=== PATIENT | male | born 1990 | race Caucasian/White ===

== ENCOUNTER 2017-05-01 04:29 | Inpatient (IN) | payer OTHER, SELFPAY ==
[2017-05-01 05:38] LABS: #Eosinphils 0.1 thou/uL (0.0-0.7); #Lymphocytes 2.1 thou/uL (1.20-3.40); #Neutrophils 9.6 thou/uL (1.40-6.50); %Basophils 0.2 % (0.0-1.0); %Eosinophils 0.7 % (0.0-10.0); %Lymphocytes 16.7 % (21.0-51.0); %Monocytes 7.8 % (0.0-10.0); Hematocrit 44.2 % (42.0-52.0); Mean Platelet Volume 7.7 fL (7.4-10.4); Red Blood Cell (RBC) Count 4.64 mill/uL (4.70-6.10); White Blood Cell (WBC) Count 12.8 thou/uL (4.8-10.8)
[2017-05-01] MEDS ORDERED: Lidocaine 1% (PF) 30 ML VIAL ONE (05:49)
[2017-05-01] MEDS ORDERED: Ketorolac Tromethamine 30 MG/ML VIAL ONE (05:57)
[2017-05-01] MEDS ORDERED: Morphine 10 MG/ML VIAL ONE (06:14)
[2017-05-01] MEDS ORDERED: VANCOMYCIN HCL IVPB SCH (07:00)
[2017-05-01] MEDS ORDERED: SODIUM CHLORIDE 0.9% IVPB SCH (07:00)
[2017-05-01] MEDS ORDERED: Ondansetron ODT 4 MG TAB SL PRN (08:30)
[2017-05-01] MEDS ORDERED: Acetaminophen 325 MG TAB PO PRN (08:30)
[2017-05-01] MEDS ORDERED: Ondansetron HCl/PF 4 MG/2 ML Vial IVP PRN (08:30)
[2017-05-01] MEDS ORDERED: Clindamycin/D5W 900 MG in Premix Bag 1 BAG IVPB SCH (08:30)
[2017-05-01] MEDS ORDERED: Morphine PF 1 MG/ML SYR IVP PRN (08:36)
[2017-05-01] MEDS ORDERED: Piperacillin/Tazobactam 4.5 GM in Sodium Chloride 0.9% 100 ML IVPB SCH (09:00)
--- NOTE | 2017-05-01 09:17 | RAD ---
TWO VIEWS OF THE LEFT FOREARM: COMPARISON: None. HISTORY: Knot on left forearm with abscess and cellulitis. Redness and swelling. FINDINGS: Two views of the left forearm show no evidence of acute fracture or dislocation. No degenerative ch anges are seen. Soft tissue swelling is seen dorsally. IMPRESSION: No evidence of acute osseous abnormality. POS: [facility]
[2017-05-01 09:45] LABS: Anion Gap 15 mmol/L (10-20); BUN (Urea Nitrogen) 15 mg/dL (8.9-20.6); Calc. Creatinine Clearance 0 mL/min (70-130); Calcium 9.5 mg/dL (7.8-10.44); Carbon Dioxide 26 mmol/L (22-29); Chloride 101 mmol/L (98-107); Estimated GFR-MDRD 84
--- NOTE | 2017-05-01 10:57 | HP-2 ---
DATE OF ADMISSION: 05/01/2017 CODE STATUS: Full. ATTENDING PHYSICIAN: Malcom Sheth M.D. RESIDENT: Dariana Pa MD CHIEF COMPLAINT: Left arm swelling. HISTORY OF PRESENT ILLNESS: This is a 27-year-old male with no past medical history, who reports a 2-3 day history of left arm pain and swelling that got increasingly worse last night. He states that it started with a red bump on his arm and then he hit it against the wall at work 1 day and then after that it continued to swell up and get progressively more red. While he was at work one day, he sterilized some tweezers and opened the top of it up to try and relieve some of the pressure and he got a little bit of pus out, but not as much as he had in the past when he has had episodes like this before. He has some numbness and tingling in his fourth and fifth fingers. In the ER, he was given 1.25 grams of vancomycin, 4 grams of morphine, 30 mg of Toradol and had an I\T\D done of the abscess. PAST MEDICAL HISTORY: None. PAST SURGICAL HISTORY: None. ALLERGIES: No known drug allergies. MEDICATIONS: None. FAMILY HISTORY: Adopted. SOCIAL HISTORY: Smokes one-half pack per day for 4 years. Denies alcohol or drug use. REVIEW OF SYSTEMS: General: Negative for fever, chills, or fatigue. Eyes: Negative for vision changes or eye pain. ENT: Negative for nasal congestion, rhinorrhea or sore throat. Respiratory: Negative for cough or shortness of breath. Cardiovascular: Negative for chest pain or edema. GI: Negative for nausea, vomiting, diarrhea, or abdominal pain. Genitourinary: Negative for dysuria, polyuria. Skin: Positive for lesions, negative for itching. musculoskeletal: Positive for pain and swelling. Neurologic: Negative for weakness. Positive for numbness. PHYSICAL EXAMINATION: VITAL SIGNS: Blood pressure 138/84, pulse 96, respiratory rate 20, temperature 97.8, pulse ox 98% on room air. Current weight 79.38 kilograms. GENERAL: Alert, oriented x3, no acute distress, well nourished, appropriately interactive. HEENT: Pupils equal, round, reactive to light. Extraocular muscles intact. Conjunctivae within normal limits. ENT: Nasal mucosa and oropharynx within normal limits. NECK: Supple, no lymphadenopathy. CARDIAC: Regular rate and rhythm. No murmurs or gallops, 2+ radial and pedal pulses. RESPIRATORY: Normal effort, no retractions, clear to auscultation bilaterally. SKIN: Left upper extremity erythema, warmth, and swelling that extends from the elbow to the wrist with an area that did have fluctuance, but was opened up with an I\T\D. ABDOMEN: Soft, nontender to palpation. Normoactive bowel sounds. No masses or distention. EXTREMITIES: No clubbing, cyanosis or edema. MUSCULOSKELETAL: Structure, tone within normal limits, 5/5 muscle strength. Full range of motion. NEUROLOGICAL: No focal deficits. Sensation within normal limits. PSYCHIATRIC: Appropriate. LABORATORY DATA: WBC 12.8, hemoglobin 14.3, hematocrit 44.2, platelets 227. ASSESSMENT AND PLAN: This 27-year-old male who presents with: 1. Left arm cellulitis versus abscess, status post incision and drainage in the Emergency Room. The patient has an elevated white count. We will get a left upper extremity x-ray and a soft tissue ultrasound. We will treat with vancomycin and Zosyn. We will repeat CBC. We will get blood cultures. They were not drawn prior to antibiotics, but will draw blood cultures x2. We will order BMP to check kidney function. We will check a UDS as patient has multiple small lesions on his arms and face. 2. Leukocytosis, likely secondary to cellulitis. Encourage p.o. intake. We will give vancomycin and Zosyn. We will monitor. DISPOSITION: Observation on surgical. Symptomatic medication will be provided. History and physical exam as well as management discussed with Dr. Sheth. Patient was seen on rounds. A handwritten note is in his chart. I agree with caraballo portions of the history, physical and plan above with the following addendum. Mr. Bowen has multiple small wounds on both of his arms suggesting drug usage. He denies this, but we believe this is the source of his infection. We will add a drug screen to his labs. [facility]
--- NOTE | 2017-05-01 11:27 | ULT ---
SOFT TISSUE ULTRASOUND OF THE LEFT FOREARM: HISTORY: Redness and edema. Possible abscess. The patient has an open wound with packing. TECHNIQUE: Multiplanar, workman scale, and color Doppler images were obtained in a targeted ultrasound of the left forearm soft tissues. FINDINGS: Edema is seen within the soft tissues. No focal fluid collection is identified. IMPRESSION: No evidence of focal contained fluid collection. POS: [facility]
[2017-05-01] MEDS: Piperacillin/Tazobactam 3.375 GM in Sodium Chloride 0.9% 100 ML IVPB SCH ×3 (12:47→23:30)
[2017-05-01] MEDS: Vancomycin HCl 1.25 GM in Sodium Chloride 0.9% 250 ML 250 ML IVPB SCH ×2 (12:47→21:23)
[2017-05-01] MEDS: HYDROcodone/Acetaminophen 5/325 mg Tablet PO PRN ×2 (12:52→18:29)
[2017-05-01] MEDS: Nicotine 14 MG PATCH TD SCH (12:53)
[2017-05-01 13:50] VITALS: BMI 25.1
[2017-05-01 19:44] LABS: Amphetamine Detected (NotDetected); Methadone Not Detected (NotDetected); Methamphetamine Detected (NotDetected)
[2017-05-02] MEDS: Piperacillin/Tazobactam 3.375 GM in Sodium Chloride 0.9% 100 ML IVPB SCH ×3 (05:13→17:56)
[2017-05-02 05:36] LABS: #Eosinphils 0.1 thou/uL (0.0-0.7); #Lymphocytes 2.2 thou/uL (1.20-3.40); #Monocytes 0.8 thou/uL (0.11-0.59); #Neutrophils 5.7 thou/uL (1.40-6.50); %Basophils 0.4 % (0.0-1.0); %Eosinophils 1.7 % (0.0-10.0); %Lymphocytes 24.1 % (21.0-51.0); %Monocytes 9.4 % (0.0-10.0); Hematocrit 41.3 % (42.0-52.0); Mean Platelet Volume 8.9 fL (7.4-10.4); Red Blood Cell (RBC) Count 4.29 mill/uL (4.70-6.10); White Blood Cell (WBC) Count 8.9 thou/uL (4.8-10.8)
[2017-05-02 05:54] LABS: Anion Gap 12 mmol/L (10-20); BUN (Urea Nitrogen) 9 mg/dL (8.9-20.6); Calc. Creatinine Clearance 154 mL/min (70-130); Calcium 9.2 mg/dL (7.8-10.44); Carbon Dioxide 24 mmol/L (22-29); Chloride 105 mmol/L (98-107); Estimated GFR-MDRD Greater than 90
[2017-05-02] MEDS: HYDROcodone/Acetaminophen 5/325 mg Tablet PO PRN ×3 (05:59→17:56)
[2017-05-02] MEDS: Vancomycin HCl 1.25 GM in Sodium Chloride 0.9% 250 ML 250 ML IVPB SCH ×3 (06:00→18:45)
--- NOTE | 2017-05-02 07:44 | PDOC.FM ---
- Subjective Subjective: No acute events overnight. Pt reports increased pain since yesterday. Denies fever, chills, sweats, paresthesias. Range of motion is limited 2/2 pain and unchanged from yesterday. Pt UDS positive for amphetamines, denies taking adderall and denies drug use. - Objective Vital Signs & Weight: Vital Signs (12 hours) Temp Pulse Resp BP Pulse Ox 05/02/17 04:00 97.8 F 80 16 129/80 99 05/02/17 00:00 98.2 F 77 16 125/81 96 05/01/17 20:08 98.0 F 86 16 05/01/17 20:00 98 F 86 16 127/75 99 Weight Admit Weight 79.379 kg Weight 79.379 kg I&O: 05/01/17 05/02/17 05/03/17 06:59 06:59 06:59 Intake Total 1100 Balance 1100 Result Diagrams: 05/02/17 04:18 05/02/17 04:18 <Jeison Hines - Last Filed: 05/02/17 07:42> - Objective Vital Signs & Weight: Vital Signs (12 hours) Temp Pulse Resp BP Pulse Ox 05/02/17 08:00 97.8 F 87 15 114/71 100 05/02/17 04:00 97.8 F 80 16 129/80 99 05/02/17 00:00 98.2 F 77 16 125/81 96 Weight Admit Weight 175 lb Weight 175 lb I&O: 05/01/17 05/02/17 05/03/17 06:59 06:59 06:59 Intake Total 1100 Balance 1100 Result Diagrams: 05/02/17 04:18 05/02/17 04:18 <Malcom Sheth - Last Filed: 05/02/17 10:43> Phys Exam - Physical Examination Constitutional: NAD HEENT: PERRLA, moist MMs Respiratory: no wheezing, no rales, no rhonchi, clear to auscultation bilateral Cardiovascular: RRR, no significant murmur, no rub 2+ radial pulse LUE Gastrointestinal: soft, non-tender, no distention, positive bowel sounds Musculoskeletal: pulses present, edema present edmeatous diatal LUE, indurated, firm, ttp, erythema resolving Neurological: non-focal, normal sensation, moves all 4 limbs normal sensation LUE Deviation from normal: erythema resolved <Jeison Hines - Last Filed: 05/02/17 07:42> Dx/Plan (1) Cellulitis of left arm Code(s): L03.114 - CELLULITIS OF LEFT UPPER LIMB Status: Acute (2) Drug abuse Code(s): F19.10 - OTHER PSYCHOACTIVE SUBSTANCE ABUSE, UNCOMPLICATED Status: Acute (3) Tobacco abuse Code(s): Z72.0 - TOBACCO USE Status: Acute (4) Leukocytosis Code(s): D72.829 - ELEVATED WHITE BLOOD CELL COUNT, UNSPECIFIED Status: Acute - Plan Plan: -continue IV abx -consider surgery consult r/o compartment syndrome -+ uds, pt denies drug use; however, multiple excoriations over upper extremities and face -tobacco abuse, certified substance abuse counselor on cessation -leukocytosis 2/2 lue cellulitis, resolved. Continue iv abx <Jeison Hines - Last Filed: 05/02/17 07:42> Attending Addendum - Attending Addendum I personally evaluated the patient and discussed the management with Dr. Hines I agree with the History, Examination, Assessment and Plan documented above with any addition or exceptions noted below. UDS is positive for methamphetamines. His arm is more swollen and tender. We are checking an MRI to see if he has an abscess or involvement of the muscle. I think he has been skin popping with meth. We addressed that on rounds today, but he is not ready to ask for assistance. <Malcom Sheth - Last Filed: 05/02/17 10:43>
[2017-05-02] MEDS: Nicotine 14 MG PATCH TD SCH (09:13)
[2017-05-02 15:46] LABS: Vancomycin, Trough 12.3 ug/mL
[2017-05-02] MEDS ORDERED: Gadobenate Dimeglumine 529 MG/1 ML (20ML VIAL) ONE (16:22)
--- NOTE | 2017-05-02 18:03 | MRI ---
LEFT UPPER EXTREMITY MRI WITH AND WITHOUT IV CONTRAST: History: 27-year-old male with history of cellulitis with history of a puncture wound with pain, swelling, an d redness up and down the arm. FINDINGS: Skin markers placed at the mid forearm. Near the skin marker in the subcutaneous tissue is a very sm all metallic susceptibility artifact, presumably from some very minimal residual metal within the coppola perficial subcutaneous tissues. There is extensive diffuse subcutaneous swelling and fat stranding w ith enhancement, evidence for extensive cellulitis. No evidence for a drainable abscess. No osteomye litis. No evidence for deep intramuscular extension. No pyelonephrosis. No evidence for a drainable abscess. IMPRESSION: Very extensive cellulitis of the arm. Small metallic susceptibility artifact within the superficial soft tissues of the forearm near the level of the skin marker. No evidence for abscess or osteomyeli tis or deep intramuscular extension of the inflammatory process. POS: [facility]
[2017-05-03] MEDS: Piperacillin/Tazobactam 3.375 GM in Sodium Chloride 0.9% 100 ML IVPB SCH ×4 (00:22→19:05)
[2017-05-03] MEDS: Vancomycin HCl 1.25 GM in Sodium Chloride 0.9% 250 ML 250 ML IVPB SCH ×4 (01:14→19:05)
[2017-05-03 05:33] LABS: #Basophils 0.1 thou/uL (0.0-0.2); #Eosinphils 0.3 thou/uL (0.0-0.7); #Lymphocytes 3.1 thou/uL (1.20-3.40); #Monocytes 0.8 thou/uL (0.11-0.59); #Neutrophils 5.1 thou/uL (1.40-6.50); %Basophils 0.7 % (0.0-1.0); %Eosinophils 2.8 % (0.0-10.0); %Lymphocytes 33.1 % (21.0-51.0); %Monocytes 8.3 % (0.0-10.0); Hematocrit 41.4 % (42.0-52.0); Red Blood Cell (RBC) Count 4.24 mill/uL (4.70-6.10); White Blood Cell (WBC) Count 9.2 thou/uL (4.8-10.8)
[2017-05-03 05:56] LABS: Anion Gap 11 mmol/L (10-20); BUN (Urea Nitrogen) 9 mg/dL (8.9-20.6); Calc. Creatinine Clearance 162 mL/min (70-130); Calcium 9.3 mg/dL (7.8-10.44); Carbon Dioxide 26 mmol/L (22-29); Chloride 108 mmol/L (98-107); Estimated GFR-MDRD Greater than 90
--- NOTE | 2017-05-03 08:39 | PDOC.FM ---
- Subjective Subjective: No acute evetns overnight. Pt reports pain is better this morning and improved throughout the day yesterday. He has FAROM. Denies paresthesias. Pulses intact and good skin color. No acute events overnight. Denies CP, SOB. - Objective Vital Signs & Weight: Vital Signs (12 hours) Temp Pulse Resp BP Pulse Ox 05/03/17 07:13 98.4 F 64 14 120/73 99 05/03/17 04:15 98.4 F 62 16 125/83 100 05/03/17 00:00 97.8 F 68 16 131/74 100 05/02/17 21:10 98.0 F 76 16 119/73 98 Weight Admit Weight 79.379 kg Weight 79.379 kg I&O: 05/02/17 05/03/17 05/04/17 06:59 06:59 06:59 Intake Total 1100 1040 Balance 1100 1040 Result Diagrams: 05/03/17 04:33 05/03/17 04:33 <Jeison Hines - Last Filed: 05/03/17 08:38> - Objective Vital Signs & Weight: Vital Signs (12 hours) Temp Pulse Resp BP Pulse Ox 05/03/17 11:10 98.1 F 67 16 129/75 100 05/03/17 07:13 98.4 F 64 14 120/73 99 05/03/17 04:15 98.4 F 62 16 125/83 100 Weight Admit Weight 79.379 kg Weight 79.379 kg I&O: 05/02/17 05/03/17 05/04/17 06:59 06:59 06:59 Intake Total 1100 1040 Balance 1100 1040 Result Diagrams: 05/03/17 04:33 05/03/17 04:33 <Zohaib Castellon - Last Filed: 05/03/17 12:24> Phys Exam - Physical Examination Constitutional: NAD HEENT: PERRLA, moist MMs, sclera anicteric Neck: no nodes, no JVD Respiratory: no wheezing, no rales, no rhonchi, clear to auscultation bilateral Cardiovascular: RRR, no significant murmur, no rub Gastrointestinal: soft, non-tender, no distention, positive bowel sounds Musculoskeletal: no edema, pulses present Neurological: non-focal, normal sensation Deviation from normal: numerous excoriations over both UE. Edema over extensor surface LUE elbow -: to wrist, erythema resolved <Jeison Hines - Last Filed: 05/03/17 08:38> Dx/Plan (1) Cellulitis of left arm Code(s): L03.114 - CELLULITIS OF LEFT UPPER LIMB Status: Acute (2) Drug abuse Code(s): F19.10 - OTHER PSYCHOACTIVE SUBSTANCE ABUSE, UNCOMPLICATED Status: Acute (3) Tobacco abuse Code(s): Z72.0 - TOBACCO USE Status: Acute (4) Leukocytosis Code(s): D72.829 - ELEVATED WHITE BLOOD CELL COUNT, UNSPECIFIED Status: Acute - Plan Plan: Leukocytosis resolved, afebrile vanco trough sub therapeutic, increase frequency to q6hr blood cultures neg X2 MRI negative for abscess or deep tissue/osteo continue IV ABX <Jeison Hines - Last Filed: 05/03/17 08:38> Attending Addendum - Attending Addendum I personally evaluated the patient and discussed the management with Dr. Hines. I agree with the History, Examination, Assessment and Plan documented above with any addition or exceptions noted below. Patient reports improvement today. MRI negative for any deep infection or fluid collection. His pain and swelling have improved somewhat. Blood cultures negative. We will continue with Vancomycin therapy for likely gram positive cellulitis of upper extremity. His Vanc trough was low, therefore dose has been increased and will need close monitored to ensure he does not become supratherapeutic at next Vanc trough. If doing well tomorrow, potential to switch to oral abx, though he needs more time currently with a therapeutic Vancomycin dose. <Zohaib Castellon - Last Filed: 05/03/17 12:24>
[2017-05-03] MEDS: Nicotine 14 MG PATCH TD SCH (09:45)
[2017-05-03] MEDS: HYDROcodone/Acetaminophen 5/325 mg Tablet PO PRN (13:35)
[2017-05-03] MEDS ORDERED: HYDROcodone/Acetaminophen 5/325 mg Tablet PO SCH (13:45)
[2017-05-03 19:13] LABS: Vancomycin, Trough 24.8 ug/mL
[2017-05-04] MEDS: Vancomycin HCl 1.25 GM in Sodium Chloride 0.9% 250 ML 250 ML IVPB SCH ×2 (00:07→05:08)
[2017-05-04 04:51] LABS: #Eosinphils 0.2 thou/uL (0.0-0.7); #Lymphocytes 2.9 thou/uL (1.20-3.40); #Monocytes 0.5 thou/uL (0.11-0.59); #Neutrophils 3.9 thou/uL (1.40-6.50); %Basophils 0.5 % (0.0-1.0); %Eosinophils 2.8 % (0.0-10.0); %Lymphocytes 38.5 % (21.0-51.0); Hematocrit 39.5 % (42.0-52.0); Red Blood Cell (RBC) Count 4.08 mill/uL (4.70-6.10); White Blood Cell (WBC) Count 7.6 thou/uL (4.8-10.8)
[2017-05-04] MEDS: Piperacillin/Tazobactam 3.375 GM in Sodium Chloride 0.9% 100 ML IVPB SCH ×4 (05:07→11:33)
[2017-05-04 05:08] LABS: Anion Gap 11 mmol/L (10-20); BUN (Urea Nitrogen) 8 mg/dL (8.9-20.6); Calc. Creatinine Clearance 158 mL/min (70-130); Carbon Dioxide 26 mmol/L (22-29); Chloride 109 mmol/L (98-107); Estimated GFR-MDRD Greater than 90
--- NOTE | 2017-05-04 08:46 | PDOC.FM ---
- Subjective Subjective: Pt had no acute events overnight. pain continues to improve. Denies cp, sob, nvdc. Edema improved, erythema resolved. - Objective Vital Signs & Weight: Vital Signs (12 hours) Temp Pulse Resp BP Pulse Ox 05/04/17 08:00 98.5 F 77 18 114/71 98 05/04/17 04:00 97.9 F 60 18 117/71 97 05/04/17 00:00 98.5 F 73 20 118/67 98 Weight Admit Weight 79.379 kg Weight 79.379 kg I&O: 05/03/17 05/04/17 05/05/17 06:59 06:59 06:59 Intake Total 1040 Balance 1040 Result Diagrams: 05/04/17 04:34 05/04/17 04:34 <Jeison Hines - Last Filed: 05/04/17 08:44> - Objective Vital Signs & Weight: Vital Signs (12 hours) Temp Pulse Resp BP Pulse Ox 05/04/17 08:00 98.5 F 77 18 114/71 98 05/04/17 04:00 97.9 F 60 18 117/71 97 05/04/17 00:00 98.5 F 73 20 118/67 98 Weight Admit Weight 79.379 kg Weight 79.379 kg I&O: 05/03/17 05/04/17 05/05/17 06:59 06:59 06:59 Intake Total 1040 Balance 1040 Result Diagrams: 05/04/17 04:34 05/04/17 04:34 <Zohaib Castellon - Last Filed: 05/04/17 11:43> Phys Exam - Physical Examination Constitutional: NAD HEENT: sclera anicteric Respiratory: no wheezing, no rales, no rhonchi, clear to auscultation bilateral Cardiovascular: RRR, no significant murmur, no rub Gastrointestinal: soft, non-tender, no distention, positive bowel sounds Musculoskeletal: no edema, pulses present Neurological: non-focal, normal sensation Deviation from normal: excoriations bl UE, edema LUE, improved from yesterday, erythema resolved <Jeison Hines - Last Filed: 05/04/17 08:44> Dx/Plan (1) Cellulitis of left arm Code(s): L03.114 - CELLULITIS OF LEFT UPPER LIMB Status: Acute (2) Drug abuse Code(s): F19.10 - OTHER PSYCHOACTIVE SUBSTANCE ABUSE, UNCOMPLICATED Status: Acute (3) Tobacco abuse Code(s): Z72.0 - TOBACCO USE Status: Acute (4) Leukocytosis Code(s): D72.829 - ELEVATED WHITE BLOOD CELL COUNT, UNSPECIFIED Status: Acute - Plan Plan: pt continues to improve clinically, afebrile and no leukocytosis plan for dc today with oral antibiotics will likely need op wound care from I/D site consult CM, possible [facility] coverage hep c hiv and rpr negative <Jeison Hines - Last Filed: 05/04/17 08:44> Attending Addendum - Attending Addendum I personally evaluated the patient and discussed the management with Dr. Hines. I agree with the History, Examination, Assessment and Plan documented above with any addition or exceptions noted below. Infection continue to improve as has his swelling and pain. He continues afebrile and WBC normal. Patient to be d/c'd today with amoxicillin and Bactrim along with self wound care. Needs to establish with PCP for further outpatient care. <Zohaib Castellon - Last Filed: 05/04/17 11:43>
[2017-05-04] MEDS: Nicotine 14 MG PATCH TD SCH (11:01)
[2017-05-04 12:04] VITALS: BP 142/90; TEMP 97.9
[2017-05-04] MEDS ORDERED: AMOXicillin 250 MG CAP PO SCH (15:00)
[2017-05-04] MEDS ORDERED: Morphine 4 MG/ML VIAL SLOW IVP SCH (15:45)
[2017-05-04] MEDS ORDERED: Sulfameth/Trimethoprim DS 800-160mg TAB PO SCH (21:00)
--- NOTE | 2017-05-06 10:21 | DIS-2 ---
LOCATION: [place], [place]. DATE OF ADMISSION: 05/01/2017 DATE OF DISCHARGE: 05/04/2017 COSIGNER: Zohaib Castellon MD RESIDENT PHYSICIAN: Jeison Hines DO ADMITTING PHYSICIAN: Malcom Sheth M.D. DISCHARGE ATTENDING: Zohaib Castellon MD CONSULTATIONS: None. PROCEDURES: 1. Forearm x-ray on 05/01/2017 showed no evidence of acute osseous abnormality. 2. Soft tissue ultrasound of the left forearm showed no evidence of focal contained fluid collection . 3. Upper extremity MRI done on 05/02/2017 showed very extensive cellulitis of the arm, small metalli c artifact within the superficial soft tissues of the forearm near the level of the skin marker. No evidence for abscess or osteomyelitis or deep intramuscular extension of the inflammatory process. 4. Incision and drainage. Unable to express any purulent material that was performed on 05/01/2017. PRIMARY DIAGNOSIS: Cellulitis, left forearm. SECONDARY DIAGNOSES: 1. Drug abuse. 2. Tobacco abuse. 3. Leukocytosis. DISCHARGE MEDICATIONS: 1. Amoxicillin 500 mg p.o. t.i.d. 2. Bactrim-DS 1 tab p.o. b.i.d. DISCONTINUED MEDICATIONS: None. HISTORY OF PRESENT ILLNESS AND HOSPITAL COURSE: The patient is a 27-year-old male originally present ed for left upper extremity swelling, erythema and pain and was found to have a left upper extremity cellulitis. There is an attempt to incise and drain the wound; however, no purulent material was abl e to be expressed. No cultures were obtained. The patient's white blood cell count on the day of ad mission was 12.8, which subsequently trended down after 3 days of vancomycin and Zosyn to 9.2 after w hich point, the patient was transitioned to p.o. medications, Bactrim and amoxicillin. His white blo od cell count on discharge was 7.6. Of note, patient's urine drug screen was positive for amphetamin es and methamphetamines although the patient denied any drug use. Serology performed showed nonreact anila syphilis, nonreactive hepatitis C antibody and nonreactive HIV 1 and 2 antigen antibody. Overall , the patient had an uncomplicated hospital course and the left upper extremity cellulitis responded to both IV and oral antibiotics and subsequently subsided prior to discharge. DISPOSITION: Stable. DISCHARGE INSTRUCTIONS: 1. Location: Home. 2. Diet: Regular. 3. Activity: ad claude. 4. Follow up with primary care provider in 7-10 days.
== END 2017-05-04 17:20 | disposition home or self-care (01) | DRG 603 ==
LOC: ERS 04:29 → OBSVTOIN 08:01 → SURG A 08:01
PROVIDERS: ADMIT Internal Medicine; ATTEND Internal Medicine
PROC: 0H9EXZZ Drainage of Left Lower Arm Skin, External Approach (ICD-10-PCS; principal; 2017-05-01)
DX: L03.114 Cellulitis of left upper limb (principal); D72.829 Elevated white blood cell count, unspecified; F17.210 Nicotine dependence, cigarettes, uncomplicated; F19.10 Other psychoactive substance abuse, uncomplicated
CPT/HCPCS: 10060; 36415; 76999; 80048; 80202; 80306; 82550; 85025; 86780; 86803; 87040; 87389; 96365; 96375; A9579; J1885; J2001; J2270; J2543; J3370; J7050

== ENCOUNTER 2017-09-22 09:30 | Emergency (ER) | payer OTHER, SELFPAY ==
[2017-09-22] MEDS ORDERED: Proparacaine 0.5% Opth 15 ML BOT ONE (10:21)
[2017-09-22] MEDS ORDERED: Fluorescein Opthalmic Strip ONE (10:21)
[2017-09-22] MEDS ORDERED: HYDROcodone/Acetaminophen 5/325 mg Tablet ONE (11:59)
== END 2017-09-22 13:25 | disposition home or self-care (01) ==
LOC: ERS 09:30
DX: T15.12XA Foreign body in conjunctival sac, left eye, initial encounter (principal); F17.210 Nicotine dependence, cigarettes, uncomplicated
CPT/HCPCS: 99283